=== PATIENT | male | born 1955 | race Caucasian/White ===

== ENCOUNTER 2018-01-27 12:57 | Inpatient (IN) | payer BC ==
[~2018-01-27] VITALS: Ht 190.5 cm; Wt 106.5 kg
[~2018-01-27 12:57] MED LIST: ASCO10004 PO; ASPI-496 PO; ATEN50TA41 PO; CALC1CAP8 PO; CHOL10003 PO; CYAN250013 PO; GARL600T PO; LACT1CAP35 PO; LORA10TA3 PO; LUTE1CAP6 PO; LYSI500T PO; MAGN250T8 PO; MULT-224 PO; OMEG-172 PO; UBID100C24 PO; VALS1TAB30 PO; [UNRECOGNIZED DRUG - CODE] PO
[2018-01-27] MEDS ORDERED: LACTATED RINGERS 1,000 ML IV SCH (13:08)
[2018-01-27] MEDS ORDERED: FENTANYL PF 100 MCG/2ML ONE ×3 (13:13→17:42)
[2018-01-27] MEDS ORDERED: PROPOFOL 10 MG/ML, 20ML ONE (13:13)
[2018-01-27] MEDS ORDERED: MIDAZOLAM 1 MG/ML, 2ML ONE (13:13)
[2018-01-27] MEDS ORDERED: CEFAZOLIN 1,000 MG ONE ×2 (13:14)
[2018-01-27] MEDS ORDERED: LIDOCAINE-MPF 2% ,5ML ONE (13:14)
[2018-01-27] MEDS ORDERED: DEXAMETHASONE 4 MG/ML, 1ML ONE ×2 (13:14)
[2018-01-27] MEDS ORDERED: ROCURONIUM 10MG/ML,5ML ONE (13:14)
[2018-01-27] MEDS ORDERED: BUPIVACAINE/PF 0.5% ONE (13:21)
[2018-01-27] MEDS ORDERED: ONDANSETRON ODT 8 MG ONE (13:49)
[2018-01-27] MEDS ORDERED: ACETAMINOPHEN 500 MG TABLET ONE (13:49)
[2018-01-27] MEDS ORDERED: TRANEXAMIC ACID 100 MG/ML, 10ML ONE (13:59)
[2018-01-27] MEDS ORDERED: ONDANSETRON ODT 8 MG PO ONE (14:00)
[2018-01-27] MEDS ORDERED: ACETAMINOPHEN 500 MG TABLET PO ONE (14:00)
[2018-01-27] MEDS ORDERED: ROPIvacaine/PF 0.5%, 30 ML ONE (14:55)
[2018-01-27] MEDS ORDERED: DIAZEPAM 5 MG/ML, 2ML IVPush PRN (15:00)
[2018-01-27] MEDS ORDERED: OXYcodone 5 MG/5 ML ORAL.SOL UDC PO PRN (15:00)
[2018-01-27] MEDS ORDERED: MEPERIDINE/PF 25MG/0.5ML IVPush PRN (15:00)
[2018-01-27] MEDS ORDERED: METOPROLOL 1 MG/ML, 5ML IV PRN (15:00)
[2018-01-27] MEDS ORDERED: hydrALAzine 20 MG/ML, 1ML IV PRN (15:00)
[2018-01-27] MEDS ORDERED: METOCLOPRAMIDE 5 MG/ML, 2ML IV PRN (15:00)
[2018-01-27] MEDS ORDERED: MORPHINE SULFATE 4 MG/ML, 1ML IVPush PRN (15:00)
[2018-01-27] MEDS ORDERED: LABETALOL 5MG/ML, 20ML IV PRN (15:00)
[2018-01-27] MEDS ORDERED: GLYCOPYRROLATE 0.2MG/1ML, 5ML ONE (15:37)
[2018-01-27] MEDS ORDERED: HYDROmorphone 2 MG/ML, 1ML ONE (17:43)
[2018-01-27] MEDS ORDERED: OXYcodone 5 MG/5 ML ORAL.SOL UDC ONE (17:43)
[2018-01-27] MEDS: FENTANYL PF 100 MCG/2ML IV PRN ×2 (17:48→18:02)
[2018-01-27] MEDS: HYDROmorphone 2 MG/ML, 1ML IVPush PRN ×3 (17:55→18:15)
[2018-01-27] MEDS ORDERED: PROMETHAZINE 25 MG/ML, 1ML IM PRN (18:00)
[2018-01-27] MEDS ORDERED: DIPHENHYDRAMINE 25 MG CAPSULE PO PRN (18:00)
[2018-01-27] MEDS ORDERED: BISACODYL 10 MG SUPP PR PRN (18:00)
[2018-01-27] MEDS ORDERED: ONDANSETRON 4 MG TABLET PO PRN (18:00)
[2018-01-27] MEDS ORDERED: DIAZEPAM 5 MG TABLET PO PRN (18:00)
[2018-01-27] MEDS ORDERED: SENNA/DOCUSATE TABLET PO PRN (18:00)
[2018-01-27] MEDS ORDERED: MAGNESIUM HYDROXIDE 8%, 30ML UDC PO PRN (18:00)
[2018-01-27] MEDS ORDERED: PROMETHAZINE 12.5 MG SUPP PR PRN (18:00)
[2018-01-27] MEDS ORDERED: ACETAMINOPHEN 650 MG/20.3 ML UDC PO PRN (18:00)
[2018-01-27] MEDS ORDERED: ONDANSETRON 2MG/ML, 2ML IV PRN (18:00)
[2018-01-27] MEDS: morphine SULFATE 10 MG/ML, 1ML IV PRN ×2 (19:42→22:07)
[2018-01-27 19:47] VITALS: BP 156/94
[2018-01-27] MEDS: DOCUSATE 100 MG CAPSULE PO SCH (20:47)
[2018-01-27] MEDS: HYDROcodone/APAP 10/325 MG TABLET PO SCH (20:47)
[2018-01-27] MEDS: CEFAZOLIN PMX 2GM/50ML 50 ML IVPB SCH (22:57)
[2018-01-27] MEDS: D5%-0.45% NACL 1,000 ML IV SCH (22:58)
[2018-01-28 00:09] VITALS: BP 134/84
[2018-01-28] MEDS: HYDROcodone/APAP 10/325 MG TABLET PO SCH ×3 (00:55→08:45)
[2018-01-28] MEDS: morphine SULFATE 10 MG/ML, 1ML IV PRN (03:05)
[2018-01-28 04:13] VITALS: BP 129/78
[2018-01-28] MEDS ORDERED: ASPIRIN 325 MG TABLET EC PO SCH (06:00)
[2018-01-28] MEDS: CEFAZOLIN PMX 2GM/50ML 50 ML IVPB SCH (06:30)
[2018-01-28 07:30] VITALS: BP 157/78
[2018-01-28] MEDS: DOCUSATE 100 MG CAPSULE PO SCH (08:45)
[2018-01-28] MEDS: D5%-0.45% NACL 1,000 ML IV SCH (08:46)
[2018-01-28] MEDS ORDERED: CETIRIZINE 10 MG TABLET PO SCH (09:00)
[2018-01-28] MEDS ORDERED: VALSARTAN 320 MG TABLET PO SCH (09:00)
[2018-01-28] MEDS ORDERED: HYDROCHLOROTHIAZIDE 25 MG TABLET PO SCH (09:00)
[2018-01-28] MEDS ORDERED: ATENOLOL 50 MG TABLET PO SCH (09:00)
[2018-01-28] MEDS ORDERED: CYCL-259 PO (09:26)
[2018-01-28] MEDS ORDERED: KETOROLAC 30 MG/1 ML IV SCH (18:00)
== END 2018-01-28 10:50 | disposition home or self-care (01) | DRG 470 ==
LOC: OUT 12:57 → ORIP 17:33 → 4NOR 19:00 → DCLOUNGE 01-28 10:39
PROVIDERS: ADMIT Orthopaedic Surgery; ATTEND Orthopaedic Surgery
PROC: 3E0T3BZ Introduction of Anesthetic Agent into Peripheral Nerves and Plexi, Percutaneous Approach (ICD-10-PCS; 2018-01-27)
PROC: 0SRD0J9 Replacement of Left Knee Joint with Synthetic Substitute, Cemented, Open Approach (ICD-10-PCS; principal; 2018-01-27 15:00)
DX: M17.12 Unilateral primary osteoarthritis, left knee (principal); M21.162 Varus deformity, not elsewhere classified, left knee; M21.062 Valgus deformity, not elsewhere classified, left knee
CPT/HCPCS: 73560; J3490; C1713; G0378; J0690; J1100; J1170; J2250; J2704; J2795; J3010; Q0162; C1776; J2270; J7120

== ENCOUNTER → 2019-02-01 | Outpatient (CLI) | payer BC, OTHER ==
[~2019-02-01] MED LIST changes: +CYCL-259 PO; +LORA-247 PO; -LORA10TA3 PO; -LYSI500T PO; +LYSI500T8 PO; -MULT-224 PO; +MULT-642 PO
[2019-02-01 10:07] LABS: ALANINE AMINOTRANSFERASE 33 U/L (12-78); ALBUMIN 3.7 g/dL (3.4-5.0); ANION GAP 7 mmol/L (5-15); CALCIUM 8.9 mg/dL (8.5-10.1); CHLORIDE 106 mmol/L (98-107); CREATININE 0.96 mg/dL (0.7-1.3)
[2019-02-01 10:10] LABS: ALKALINE PHOSPHATASE 73 U/L (45-117); BILIRUBIN,TOTAL 0.8 mg/dL (0.2-1.0); TOTAL PROTEIN 7.2 g/dL (6.4-8.2)
== END | disposition home or self-care (01) ==
LOC: STAR 08:54
PROVIDERS: ATTEND Orthopaedic Surgery
DX: M25.462 Effusion, left knee (principal); M25.562 Pain in left knee; G89.18 Other acute postprocedural pain; Z96.652 Presence of left artificial knee joint
CPT/HCPCS: 36415; 80053; 93005

== ENCOUNTER 2019-02-09 05:39 | Day surgery (SDC) | payer BC, OTHER ==
[~2019-02-09] VITALS: Ht 190.5 cm; Wt 102.8 kg
[2019-02-09] MEDS ORDERED: LACTATED RINGERS 1,000 ML IV SCH (06:16)
[2019-02-09 06:19] VITALS: BP 189/108
[2019-02-09] MEDS ORDERED: GABAPENTIN 300 MG CAPSULE PO ONE (06:30)
[2019-02-09] MEDS ORDERED: ACETAMINOPHEN 500 MG TABLET PO ONE (06:30)
[2019-02-09] MEDS ORDERED: FENTANYL PF 100 MCG/2ML ONE ×2 (06:53→08:18)
[2019-02-09] MEDS ORDERED: MIDAZOLAM 1 MG/ML, 2ML ONE (06:53)
[2019-02-09] MEDS ORDERED: DEXAMETHASONE 4 MG/ML, 1ML ONE (06:56)
[2019-02-09] MEDS ORDERED: PROPOFOL 10 MG/ML, 20ML ONE (06:56)
[2019-02-09] MEDS ORDERED: ONDANSETRON 2MG/ML, 2ML ONE (06:56)
[2019-02-09] MEDS ORDERED: CEFAZOLIN 1,000 MG ONE (06:56)
[2019-02-09] MEDS ORDERED: BUPIVACAINE/PF 0.5% ONE (07:04)
[2019-02-09] MEDS ORDERED: EPINEPHRINE 1 MG/ML, 1ML ONE (07:04)
[2019-02-09] MEDS ORDERED: LIDOCAINE 1%-EPI 1:100K, 20ML ONE (07:05)
[2019-02-09] MEDS ORDERED: KETOROLAC 30 MG/1 ML ONE (07:15)
[2019-02-09] MEDS ORDERED: hydrALAzine 20 MG/ML, 1ML ONE (07:37)
[2019-02-09] MEDS ORDERED: methylPREDNISolone*ACETATE* 80 MG/ML ONE (07:47)
[2019-02-09] MEDS ORDERED: OXYcodone 5 MG/5 ML ORAL.SOL UDC ONE (08:18)
[2019-02-09] MEDS ORDERED: MEPERIDINE/PF 25MG/ML,1ML IVPush PRN (08:30)
[2019-02-09] MEDS ORDERED: OXYcodone 5 MG/5 ML ORAL.SOL UDC PO PRN (08:30)
[2019-02-09] MEDS ORDERED: HYDROmorphone 2 MG/ML, 1ML IVPush PRN (08:30)
[2019-02-09] MEDS ORDERED: FENTANYL PF 100 MCG/2ML IV PRN (08:30)
[2019-02-09] MEDS ORDERED: ONDANSETRON 2MG/ML, 2ML IV PRN (08:30)
[2019-02-09] MEDS ORDERED: PROMETHAZINE 25 MG/ML, 1ML IV PRN (08:30)
[2019-02-09] MEDS ORDERED: ATENOLOL 50 MG TABLET PO SCH (09:00)
[2019-02-09] MEDS ORDERED: [UNRECOGNIZED DRUG - OTHER] PO SCH (09:00)
[2019-02-09] MEDS ORDERED: VALSARTAN PO SCH (09:00)
[2019-02-09] MEDS ORDERED: ASPIRIN 81 MG TABLET EC PO SCH (09:00)
[2019-02-09] MEDS ORDERED: CHOLECALCIFEROL 1,000 UNIT TABLET PO SCH (09:00)
[2019-02-09] MEDS ORDERED: LORATADINE 10 MG TABLET PO SCH (09:00)
[2019-02-09] MEDS ORDERED: HYDROCHLOROTHIAZIDE PO SCH (09:00)
[2019-02-09] MEDS ORDERED: MULTIVITAMIN 1 TABLET PO SCH (09:00)
== END 2019-02-09 09:45 | disposition home or self-care (01) ==
LOC: OUT 05:39
PROVIDERS: ATTEND Orthopaedic Surgery
DX: M25.462 Effusion, left knee (principal); M65.862 Other synovitis and tenosynovitis, left lower leg; I10 Essential (primary) hypertension; Z96.652 Presence of left artificial knee joint; Z79.82 Long term (current) use of aspirin
CPT/HCPCS: 29876; J0171; J0360; J0690; J1040; J1100; J1885; J2250; J2405; J2704; J3010; J3490; J7120